=== PATIENT | female | born 1955 | race American Indian/Alaskan Native ===

== ENCOUNTER 2016-08-17 13:38 | Outpatient (CLI) | payer OTHER ==
--- NOTE | 2016-08-18 09:32 | Mammography Report ---
BILATERAL DIGITAL SCREENING MAMMOGRAM with CAD: 08/17/16 13:38:00 CLINICAL: Routine screening. COMPARISON:07/31/15 FINDINGS: The breasts are almost entirely fatty. No mass, architectural distortion or suspicious calcifications. IMPRESSION: No mammographic evidence of malignancy. BI-RADS CATEGORY: 2 -- Benign RECOMMENDATION: Routine mammographic screening in one year. COMMENT: Patient follow-up letters are generated by our [facility] application.
== END 2016-08-17 13:39 | disposition home or self-care (01) ==
LOC: SPVWC 13:38
PROVIDERS: ATTEND Obstetrics & Gynecology
DX: Z12.31 Encounter for screening mammogram for malignant neoplasm of breast (principal)
CPT/HCPCS: 77067; G0202

== ENCOUNTER 2016-11-11 14:45 | Outpatient (CLI) | payer OTHER ==
--- NOTE | 2016-11-11 16:35 | Mammography Report ---
RIGHT DIGITAL DIAGNOSTIC MAMMOGRAM with CAD: 11/11/16 14:45:00 CLINICAL: Right breast lump and pain and newly retracted right nipple. She denies any nipple discharge. COMPARISON:08/17/16 mammogram FINDINGS: The breast is almost entirely fatty.The right nipple is retracted on the CC view and there is suggestion of an irregular subareolar mass measuring approximately 12 mm. No other mass. No architectural distortion or suspicious calcifications. Moderate skin thickening at the nipple is slightly increased compared to previous exams. A central biopsy clip with no mammographic finding at the clip. Ultrasound of the right breast (including all four quadrants and the retroareolar area) was performed and demonstrated a solid heterogeneous complex irregular retroareolar mass measuring approximately 1.0 x 0.8 x 1.1 cm. The mass is slightly medial to the retracted nipple and demonstrates some blood flow by color Doppler. No other mass and no cyst or shadowing. Ultrasound of the right axilla demonstrated a single lymph node with central fat and benign morphology measuring 1.3 x 0.8 x 1.2 cm. No suspicious cortical thickening. IMPRESSION: A suspicious 1 cm retroareolar mass with nipple retraction. Recommend either ultrasound guided needle core vacuum assisted biopsy or surgical excision.I will consult with a breast surgeon and addend this report with a more specific recommendation for biopsy. BI-RADS CATEGORY: 4--Suspicious ACR BI-RADS MAMMOGRAPHIC CODES: 0 = Needs additional imaging evaluation; 1 = Negative; 2 = Benign; 3 = Probably benign; 4 = Suspicious; 5 = Malignant; 6 = Known biopsy-proven malignancy COMMENT: 1. Dense breast tissue, i.e., adenosis, fibrocystic changes, etc., may obscure an underlying neoplasm. 2. Approximately 10% of cancers are not detected with mammography. 3. A negative mammography report should not delay biopsy if a clinically suspicious mass is present. COMMENT: Patient follow-up letters are generated by our [employer] application.
== END 2016-11-11 14:46 | disposition home or self-care (01) ==
LOC: SPVWC 14:45
PROVIDERS: ATTEND Obstetrics & Gynecology
DX: N63 Unspecified lump in breast (principal); N64.4 Mastodynia; N64.53 Retraction of nipple
CPT/HCPCS: 76641; G0206

== ENCOUNTER 2016-11-19 13:59 | Outpatient (CLI) | payer OTHER ==
--- NOTE | 2016-11-19 15:28 | Ultrasound Report ---
VACUUM ASSISTED ULTRASOUND GUIDED NEEDLE CORE BIOPSY WITH CLIP PLACEMENT RIGHT BREAST : 11/19/16 13:59:00 CLINICAL: Subareolar mass. COMPARISON :11/11/16 FINDINGS: The procedure was explained to the patient and informed consent was obtained. Ultrasound demonstrated the previously described subareolar mass. The skin was prepped with Betadine and anesthetized with 1% lidocaine. Vacuum-assisted needle core biopsy was performed through a small dermatotomy using ultrasound guidance, 2% lidocaine with epinephrine for deep anesthesia and a 13-gauge Elite biopsy probe. Imaging demonstrated satisfactory sampling. Multiple cores were obtained and placed in formalin. An 11-gauge Mammostar barbell shape clip was deployed within the lesion. Hemostasis was achieved with minimal pressure and a sterile dressing was applied. The patient tolerated the procedure well and there were no apparent complications. A two view mammogram demonstrated concordant clip placement. Minimal hematoma at the biopsy site. The patient left the department in good condition and was given instructions for wound care and follow up. IMPRESSION: Uncomplicated vacuum-assisted ultrasound core biopsy and clip placement right breast.
--- NOTE | 2016-11-20 10:51 | Mammography Report ---
RIGHT DIGITAL DIAGNOSTIC MAMMOGRAM: 11/19/16 13:59:00 CLINICAL: For clip placement immediately status post ultrasound biopsy. COMPARISON:11/11/16 FINDINGS: A subareolar biopsy clip is now identified and correlates with the previously described mass. IMPRESSION: Concordant clip placement status post ultrasound biopsy. BI-RADS CATEGORY: 4--Suspicious Pathology pending.
== END 2016-11-19 14:00 | disposition home or self-care (01) ==
LOC: SPVWC 13:59
PROVIDERS: ATTEND Obstetrics & Gynecology
DX: N63 Unspecified lump in breast (principal); N64.4 Mastodynia
CPT/HCPCS: 19083; 88305; A4648; G0206; 88342

== ENCOUNTER 2017-01-12 18:14 | Outpatient (CLI) | payer OTHER | END 2017-01-12 18:15 | disposition home or self-care (01) | LOC: LABHHL 18:14 | PROVIDERS: ATTEND Surgery | DX: N61.1 Abscess of the breast and nipple (principal); I25.10 Atherosclerotic heart disease of native coronary artery without angina pectoris; J45.909 Unspecified asthma, uncomplicated | CPT/HCPCS: 87075; 87116 ==

== ENCOUNTER 2017-03-10 11:23 | Day surgery (SDC) | payer OTHER ==
[~2017-03-10 11:23] MED LIST: NACL 0.9% 1000 ML 1,000 ML IV SCH; PEPCID PO NR; VERSED IV NR
--- NOTE | 2017-03-10 12:14 | Anesthesia Day of Surgery ---
Anesthesia Day of Surgery - Day of Surgery Patient Examined: Yes Patient H&P Reviewed: Yes Patient is NPO: Yes Cardiac Clearance: Yes
--- NOTE | 2017-03-10 12:18 | Anesthesia Consultation ---
Anesthesia Consult and Med Hx Date of service: 03/10/17 - Airway Anesthetic Teeth Evaluation: Good ROM Head & Neck: Adequate Mental/Hyoid Distance: Adequate Mallampati Class: Class III Intubation Access Assessment: Probably Good - Pulmonary Exam CTA: No (mild inspiratory and expiratory wheezing) - Cardiac Exam Cardiac Exam: RRR (distant HS) - Pre-Operative Health Status ASA Pre-Surgery Classification: ASA3 Proposed Anesthetic Plan: Local, MAC - Pulmonary Hx Smoking: Yes (1 PPD X 40 YRS) Hx Asthma: Yes SOB: Yes (SOB) Hx Sleep Apnea: Yes (DX SLEEP APNEA , NO CPAP USE) - Cardiovascular System Hx Hypertension: Yes (CHF [place] III, EF:20-25% LV diffuse hypokinesis, diastolic dysfxn grade 2) Hx Angina: Yes (OCC) Hx Pacemaker: Yes (BiV pacemaker) Hx Internal Defibrillator: Yes - Central Nervous System Hx Back Pain: Yes Hx Psychiatric Problems: No - Endocrine Hx Hypothyroidism: Yes (HAD THYROID ABLATION , ON MEDS) - Hematic Hx Anemia: Yes (NOT RECENT) - Other Systems Hx Alcohol Use: Yes (1-2 DRINKS PER DAY) Hx Cancer: No - Additional Comments Anesthesia Medical History Comments: PONV, RA, breast abscess
[2017-03-10] MEDS ORDERED: DILAUDID IV PRN (12:23)
[2017-03-10] MEDS ORDERED: ZOFRAN IV PRN (12:23)
[2017-03-10] MEDS ORDERED: ANCEF/STERILE WATER 2 GM/20 ML IV NR (13:00)
[2017-03-10] MEDS ORDERED: DIPRIVAN 10 MG/ML IV ONE ×2 (13:20→15:02)
[2017-03-10] MEDS ORDERED: SUBLIMAZE ONE (13:20)
[2017-03-10] MEDS ORDERED: VERSED ONE (13:20)
[2017-03-10] MEDS ORDERED: XYLOCAINE MPF 2% ONE (13:37)
[2017-03-10] MEDS ORDERED: VANCOMYCIN/NS 1 GM/250 ML 1 GM/250 ML BAG IV NR (15:00)
[2017-03-10] MEDS ORDERED: XYLOCAINE 1% 20 mL ONE (15:01)
[2017-03-10] MEDS ORDERED: NEOSPORIN GU IR ONE ×2 (15:01→15:11)
[2017-03-10] MEDS ORDERED: MARCAINE 0.25% INFILTRATI ONE ×2 (15:01→15:11)
--- NOTE | 2017-03-10 15:03 | Short Stay Summary ---
Short Stay Documentation Date of service: 03/10/17 - History H&P: obtained from office - Allergies and Medications Current Medications: Allergies No Known Allergies Allergy (Verified 01/25/15 07:08) Home Medications Medication Instructions Recorded Confirmed Last Taken Type Advair Diskus 100-50 mcg 2 puff INHALATION PRN PRN 01/25/15 03/10/17 01/24/15 History 2 Amitiza 24 mcg PO BID 01/25/15 03/10/17 03/09/17 21:30 History Aspirin 81 mg PO DAILY 01/25/15 03/10/17 03/08/17 09:00 History Coreg 25 mg PO BID 01/25/15 03/10/17 03/10/17 09:30 History DULoxetine 30 mg PO DAILY 01/25/15 03/10/17 03/10/17 09:30 History Losartan 50 mg PO DAILY 01/25/15 03/10/17 03/10/17 09:30 History Minocycline (Nf) 100 mg PO DAILY 01/25/15 03/10/17 11/26/14 History 100mg ProAir 2 puff INHALATION PRN PRN 01/25/15 03/08/17 01/24/15 History 2 RX: Spironolactone Tab [Aldactone 12.5 mg PO DAILY 01/25/15 03/10/17 03/10/17 09 :30 History Tab] Simvastatin 40 mg PO DAILY 01/25/15 03/10/17 03/09/17 20:30 History Synthroid 150 mcg PO DAILY 01/25/15 03/10/17 03/10/17 09:30 History sulfaSALAzine 500 mg PO BID 01/25/15 03/10/17 03/10/17 09:30 History Tizanidine HCl [Zanaflex] 4 mg PO TID PRN 03/08/17 03/08/17 Unknown History HYDROcodone/APAP 5-325 [[place] 1 each PO Q6HR PRN #30 tablet 03/10/17 Unknown Rx 5/325] RX: Clindamycin [Clindamycin CAP] 300 mg PO Q6H #28 capsule 03/10/17 Unknown Rx Active Medications Hydromorphone HCl (Dilaudid) 0.5 mg IV Q10MIN PRN PRN Reason: Pain , Severe (7-10) Stop: 03/13/17 12:24 Sodium Chloride (Nacl 0.9% 1000 Ml) 1,000 mls @ 75 mls/hr IV DIRECT YONI Last Admin: 03/10/17 12:27 Dose: 75 mls/hr Vancomycin HCl (Vancomycin/Ns 1 Gm/250 Ml) 1 gm in 250 mls @ 167.007 mls/hr IV PREOP NR PRN Reason: Protocol Stop: 03/10/17 23:59 Last Admin: 03/10/17 14:45 Dose: 167.007 mls/hr Midazolam HCl (Versed) 2 mg IV PREOP NR Stop: 03/10/17 23:59 Last Admin: 03/10/17 12:28 Dose: 2 mg - Brief post op/procedure progress note Date of procedure: 03/10/17 Pre-op diagnosis: Right breast abscess Post-op diagnosis: same Procedure: Right breast incision and drainage Anesthesia: GETA Surgeon: JUDY CARABALLO Estimated blood loss: minimal Pathology: list (cultures) Specimen disposition: to lab (cultures) Condition: stable - Disposition Condition at discharge: Good Disposition: DC-01 TO HOME OR SELFCARE Short Stay Discharge Plan Activity: no restrictions, other Diet: regular Wound: other (may shower in 24 hours; do not manipulate or remove drains) Follow up with: LEXI GAYTAN MD [Primary Care Provider] - 7 Days JUDY CARABALLO MD [Staff Physician] - 03/16/17 Prescriptions: RX: Clindamycin [Clindamycin CAP] 300 mg PO Q6H #28 capsule HYDROcodone/APAP 5-325 [[place] 5/325] 1 each PO Q6HR PRN #30 tablet PRN Reason: Pain
--- NOTE | 2017-03-10 15:03 | Operative Report ---
Operative Report Operative Report: Date of service: 03/10/2017 Preoperative diagnosis: Right breast periductal mastitis, chronic right breast abscess Postoperative diagnosis: Same Procedure: Incision and drainage of right breast abscess, under ultrasound guidance Surgeon: Radha Lawson M.D. Anesthesia: Local Mac Findings: Known abscess cavities at the 9, 12 and 3 o'clock position of the nipple areolar complex, abscess cavity drained with 2 [place] drains placed Estimated blood loss: Minimal Specimens: Cultures taken of abscess cavity Complications: None Disposition: PACU in good condition Inidcations for operative procedure: This is a 61 year old lady with chronic right breast infection, periductal mastitis. Prior biopsy performed by Dr. Hunter with findings of inflammation and abscess in October 2016. Given chronicity of infection, recommendations were for surgical incision and drainage. She wished to proceed with the above procedure. Procedure in detail: The patient was taken to the operating room and was laid supine. Local MAC anesthesia was administered. The right breast was prepped and draped in the normal sterile operative fashion. Abscess drainage was noted from the 2 to 3 o'clock positions of the nipple areolar complex. The nipple, was anesthetized with 1% lidocaine mixed with quarter percent Marcaine. Ultrasound was used to identify abscess fluid collection that was present. Drainage was noted and on ultrasound fluid collection was present. At location of current drainage at the 9:00, 12:00 and 3:00 positions, pinpoint openings were open further with the tonsil to allow area to fully drain. Cultures were taken. Area was re-ultrasound with no definitive fluid collection noted. Abscess cavities were then Pulsavac with 1 L of normal sterile with antibiotic solution. [place] drains were then placed in at the 3 o'clock position to the 12 o'clock position and then from the 9 o'clock position to the 12 o'clock and sutured into place. Hemostasis was noted. The breast was appropriately packed with gauze and ABDs pads and she was awakened from anesthesia without complications and transferred to PACU in good condition.
[2017-03-10] MEDS ORDERED: XYLOCAINE 1% 20 mL INFILTRATI ONE (15:11)
[2017-03-10] MEDS ORDERED: NACL 0.9% IR ONE (15:11)
[2017-03-10] MEDS ORDERED: NACL 0.9% 1000 ML IR ONE (15:11)
[2017-03-10] MEDS ORDERED: AMIDATE IV ONE (15:18)
[2017-03-10] MEDS ORDERED: ZOFRAN ONE (15:18)
[2017-03-10] MEDS ORDERED: NACL 0.9% 1000 ML 1,000 ML ONE (15:24)
--- NOTE | 2017-03-10 16:15 | Post Anesthesia Evaluation ---
- Post Anesthesia Evaluation Patient Participated: Yes Airway Patent: Yes Stable Respiratory Function: Yes Nausea/Vomiting: No Temp > 96.8F: Yes Pain Manageable: Yes Adequeate Hydration: Yes Anesthesia Complications: No Block Receding Appropriately: Not Applicable Patient on Ventilator: No
[2017-03-10 16:26] VITALS: BP 134/70
[2017-03-10] MEDS ORDERED: NORCO 5/325 PO ONE (17:00)
== END 2017-03-10 17:28 | disposition home or self-care (01) ==
LOC: OR 11:23
PROVIDERS: ATTEND Surgery
DX: N61.1 Abscess of the breast and nipple (principal); I11.0 Hypertensive heart disease with heart failure; I50.9 Heart failure, unspecified; F17.210 Nicotine dependence, cigarettes, uncomplicated; J45.909 Unspecified asthma, uncomplicated; E03.9 Hypothyroidism, unspecified; G47.33 Obstructive sleep apnea (adult) (pediatric); M06.9 Rheumatoid arthritis, unspecified; Z95.810 Presence of automatic (implantable) cardiac defibrillator; Z79.899 Other long term (current) drug therapy; Z98.890 Other specified postprocedural states; Z72.89 Other problems related to lifestyle
CPT/HCPCS: 19020; 87075; 87116; J2250; J2405; J2704; J3010; J3370; J7030; J0690

== ENCOUNTER 2017-05-18 14:17 | Outpatient (CLI) | payer OTHER ==
--- NOTE | 2017-05-18 15:07 | Mammography Report ---
RIGHT DIGITAL DIAGNOSTIC MAMMOGRAM with CAD: 05/18/17 14:17:00 CLINICAL: Six-month followup after treatment for abscess. COMPARISON:11/19/16 FINDINGS: Mild periareolar skin thickening and near complete resolution of the subareolar densities compared to prior mammograms. The most recently placed subareolar biopsy clip has disappeared and has presumably exited through the skin. No mass, architectural distortion or suspicious calcifications. IMPRESSION: Mild residual benign postinflammatory changes. BI-RADS CATEGORY: 2 -- Benign RECOMMENDATION: Return to routine mammographic screening. ACR BI-RADS MAMMOGRAPHIC CODES: 0 = Needs additional imaging evaluation; 1 = Negative; 2 = Benign; 3 = Probably benign; 4 = Suspicious; 5 = Malignant; 6 = Known biopsy-proven malignancy COMMENT: 1. Dense breast tissue, i.e., adenosis, fibrocystic changes, etc., may obscure an underlying neoplasm. 2. Approximately 10% of cancers are not detected with mammography. 3. A negative mammography report should not delay biopsy if a clinically suspicious mass is present. COMMENT: Patient follow-up letters are generated by our [employer] application.
== END 2017-05-18 14:18 | disposition home or self-care (01) ==
LOC: SPVWC 14:17
PROVIDERS: ATTEND Surgery
DX: N61.1 Abscess of the breast and nipple (principal); Z85.3 Personal history of malignant neoplasm of breast
CPT/HCPCS: G0206-RT

== ENCOUNTER 2017-08-24 14:18 | Outpatient (CLI) | payer OTHER ==
--- NOTE | 2017-08-24 16:17 | Ultrasound Report ---
Bilateral diagnostic mammogram with CAD and targeted left breast ultrasound. History: New palpable lump in the left breast. Findings: Comparison is made to previous studies from May of 2017 as well as October 2016. They're scattered fibroglandular densities, and the overall pattern is stable. Coarse calcifications have benign features with no suspicious microcalcifications in either breast. A single biopsy clip is seen in the right breast. No mammographic findings are seen at the site of the palpable abnormality which was marked with a cutaneous metallic marker. Sonographic evaluation of this area in the left breast demonstrates a somewhat elongated hypoechoic lesion measuring 1.4 x 0.4 cm just beneath the skin. This is sharply circumscribed and demonstrates benign features with no acoustic shadowing or other suspicious findings. Impression: Subcutaneous hypoechoic lesion at the site of palpable abnormality in the left breast with no mammographic correlate. Imaging features are benign. This could represent a complex cyst, or possibly even a sebaceous cyst although the findings are not typical. BI-RADS code: 2. Recommendation: Annual screening.
== END 2017-08-24 14:19 | disposition home or self-care (01) ==
LOC: SPVWC 14:18
PROVIDERS: ATTEND Surgery
DX: N63.20 Unspecified lump in the left breast, unspecified quadrant (principal); N64.89 Other specified disorders of breast
CPT/HCPCS: 77066; 77067

== ENCOUNTER 2018-09-13 14:20 | Outpatient (CLI) | payer OTHER ==
--- NOTE | 2018-09-13 14:57 | Mammography Report ---
BILATERAL DIGITAL SCREENING MAMMOGRAM with CAD: 09/13/18 14:20:00 CLINICAL: Routine screening. COMPARISON:08/24/17 FINDINGS: The breasts are almost entirely fatty. No mass, architectural distortion or suspicious calcifications. IMPRESSION: No mammographic evidence of malignancy. BI-RADS CATEGORY: 2 -- Benign RECOMMENDATION: Routine mammographic screening in one year. COMMENT: Patient follow-up letters are generated by our [employer] application.
== END 2018-09-13 14:21 | disposition home or self-care (01) ==
LOC: SPVWC 14:20
PROVIDERS: ATTEND Surgery
DX: Z12.31 Encounter for screening mammogram for malignant neoplasm of breast (principal); I11.0 Hypertensive heart disease with heart failure; I50.9 Heart failure, unspecified; E78.00 Pure hypercholesterolemia, unspecified; J45.909 Unspecified asthma, uncomplicated; E03.9 Hypothyroidism, unspecified; F17.210 Nicotine dependence, cigarettes, uncomplicated; Z95.0 Presence of cardiac pacemaker
CPT/HCPCS: 77067

== ENCOUNTER 2019-09-19 13:20 | Outpatient (CLI) | payer OTHER ==
--- NOTE | 2019-09-19 14:16 | Mammography Report ---
DIGITAL SCREENING MAMMOGRAM WITH CAD, 09/19/2019 INDICATION: Routine screening mammography. TECHNIQUE: Digital bilateral 2D mammography was obtained in the craniocaudal and mediolateral obliq ue projections. This examination was interpreted with the benefit of Computer-Aided Detection analysi s. COMPARISON: 09/13/2018 FINDINGS: Breast Density: The breasts are almost entirely fatty. There is no evidence of dominant mass, suspicious calcifications or architectural distortion in eithe r breast. A right central biopsy clip. IMPRESSION: No mammographic evidence of malignancy. Follow up recommendation: Routine yearly BI-RADS Category 2: Benign. A "normal" or negative report should not discourage follow up or biopsy of a clinically significant f inding. A written summary of these findings will be mailed to the patient. The patient will be entered into a mammography reporting system which will generate a reminder letter for the patient's next appointmen t at the appropriate interval. The [employer] recommends yearly mammograms starting at age 40 and continuing as l maureen as a woman is in good health. Breast MRI is recommended for women with an approximate 20-25% or greater lifetime risk of breast cancer, including women with a strong family history of breast or ova nel cancer or who have been treated for Hodgkin's disease. Signer Name: Brandan Hunter MD Signed: 09/19/2019 2:11 PM Workstation Name: [id number]
== END 2019-09-19 13:21 | disposition home or self-care (01) ==
LOC: SPVWC 13:20
PROVIDERS: ATTEND Surgery
DX: Z12.31 Encounter for screening mammogram for malignant neoplasm of breast (principal); N64.89 Other specified disorders of breast
CPT/HCPCS: 77067

== ENCOUNTER 2020-09-24 13:25 | Outpatient (CLI) | payer OTHER ==
--- NOTE | 2020-09-24 14:33 | Mammography Report ---
DIGITAL SCREENING MAMMOGRAM WITH CAD, 09/24/2020 CLINICAL INFORMATION / INDICATION: Routine screening mammography. SCREENING MAMMO TECHNIQUE: Digital bilateral 2D mammography was obtained in the craniocaudal and mediolateral obliqu e projections. This examination was interpreted with the benefit of Computer-Aided Detection analysis . COMPARISON: 09/19/2019 FINDINGS: Breast Density: There are scattered areas of fibroglandular density. No dominant mass, suspicious calcifications, or architectural distortion in either breast. Biopsy changes and benign-appearing calcifications are again seen. IMPRESSION: No mammographic evidence of malignancy. Follow up recommendation: Routine yearly BI-RADS Category 2: Benign. A "normal" or negative report should not discourage follow up or biopsy of a clinically significant f inding. A written summary of these findings will be mailed to the patient. The patient will be entered into a mammography reporting system which will generate a reminder letter for the patient's next appointmen t at the appropriate interval. The [employer] recommends yearly mammograms starting at age 40 and continuing as l maureen as a woman is in good health. Breast MRI is recommended for women with an approximate 20-25% or greater lifetime risk of breast cancer, including women with a strong family history of breast or ova nel cancer or who have been treated for Hodgkin's disease. Signer Name: David De La Fuente MD Signed: 09/24/2020 2:29 PM Workstation Name: [id number]
== END 2020-09-24 13:26 | disposition home or self-care (01) ==
LOC: SPVWC 13:25
PROVIDERS: ATTEND Surgery
DX: Z12.31 Encounter for screening mammogram for malignant neoplasm of breast (principal)
CPT/HCPCS: 77067

== ENCOUNTER 2021-10-01 13:19 | Outpatient (CLI) | payer OTHER ==
--- NOTE | 2021-10-02 11:27 | Mammography Report ---
DIGITAL SCREENING MAMMOGRAM WITH CAD, 10/01/2021 CLINICAL INFORMATION / INDICATION: Routine screening TECHNIQUE: Digital bilateral 2D mammography was obtained in the craniocaudal and mediolateral obliqu e projections. This examination was interpreted with the benefit of Computer-Aided Detection analysis . COMPARISON: 09/24/2020 FINDINGS: Breast Density: There are scattered areas of fibroglandular density. No dominant mass, suspicious calcifications, or architectural distortion in either breast. Bilateral surgical changes and benign-appearing calcifications are again noted. Right optic changes a re again seen. IMPRESSION: No mammographic evidence of malignancy. Follow up recommendation: Routine yearly BI-RADS Category 2: BENIGN. A "normal" or negative report should not discourage follow up or biopsy of a clinically significant f inding. A written summary of these findings will be mailed to the patient. The patient will be entered into a mammography reporting system which will generate a reminder letter for the patient's next appointmen t at the appropriate interval. The [employer] recommends yearly mammograms starting at age 40 and continuing as l maureen as a woman is in good health. Breast MRI is recommended for women with an approximate 20-25% or greater lifetime risk of breast cancer, including women with a strong family history of breast or ova nel cancer or who have been treated for Hodgkin's disease. Signer Name: David De La Fuente MD Signed: 10/02/2021 11:23 AM Workstation Name: [id number]
== END 2021-10-01 13:20 | disposition home or self-care (01) ==
LOC: SPVWC 13:19
PROVIDERS: ATTEND Surgery
DX: Z12.31 Encounter for screening mammogram for malignant neoplasm of breast (principal); N64.89 Other specified disorders of breast
CPT/HCPCS: 77067